=== PATIENT | female | born 1945 | race Caucasian/White ===

== ENCOUNTER 2017-04-06 06:16 | Day surgery (SDC) | payer OTHER, MEDICAID ==
[~2017-04-06] VITALS: Ht 157.5 cm; Wt 87.2 kg
[~2017-04-06 06:16] MED LIST: ALBU1AER INH; ALPR.25 PO; AMLO5TAB22 PO; DOCU1CAP39 PO; DRON400 PO; FURO1TAB93 PO; MORP1INJ45 PO; MORP30SU PO; NITR0.4S SL; PARO10TA PO; PLAV75TA PO; POTA-267 PO; PRAV40TA PO; RANI150T PO; Z.0.OXYGEN INH; [UNRECOGNIZED DRUG - CODE] TD
[2017-04-06] MEDS ORDERED: [UNRECOGNIZED DRUG - CODE] T-DERMAL (07:08)
[2017-04-06] MEDS ORDERED: [UNRECOGNIZED DRUG - CODE] PO (07:08)
[2017-04-06] MEDS ORDERED: PRAV40TA2 PO (07:08)
[2017-04-06] MEDS ORDERED: MULT400T PO (07:08)
[2017-04-06] MEDS ORDERED: APIX5TAB PO (07:08)
[2017-04-06] MEDS ORDERED: POTA-243 PO (07:08)
[2017-04-06] MEDS ORDERED: PARO10TA2 PO (07:08)
[2017-04-06] MEDS ORDERED: FURO40TA PO (07:08)
[2017-04-06] MEDS ORDERED: PROT40TA PO (07:08)
[2017-04-06] MEDS ORDERED: MORP15TA73 PO (07:08)
[2017-04-06] MEDS ORDERED: SYMB160A INH (07:08)
[2017-04-06] MEDS ORDERED: ALPR0.25 PO (07:08)
[2017-04-06 07:09] VITALS: BP 146/51; PULSE 68; RESP 18; TEMP 98.1; O2SAT 97
[2017-04-06 07:24] LABS: AUTOMATED NEUTROPHIL # 3.9 TH/MM3 (1.8-7.7); BASOPHIL # 0.1 TH/MM3 (0-0.2); BASOPHIL % 0.9 % (0.0-2.0); EOSINOPHIL # 0.6 TH/MM3 (0-0.4); EOSINOPHIL % 7.5 % (0.0-4.0); HEMATOCRIT 38.3 % (35.0-46.0); HEMO FLAGS DIFF FINAL; LYMPH % 29.8 % (9.0-44.0); LYMPHOCYTE # 2.2 TH/MM3 (1.0-4.8); MEAN CELL VOLUME 84.8 FL (80.0-100.0); MEAN CORPUSCULAR HEMOGLOBIN 28.4 PG (27.0-34.0); MEAN CORPUSCULAR HGB CONC 33.5 % (32.0-36.0); MONO % 9.4 % (0.0-8.0); NEUT % 52.4 % (16.0-70.0); PLATELET COUNT 202 TH/MM3 (150-450); RED BLOOD COUNT 4.52 MIL/MM3 (4.00-5.30); RED CELL DISTRIBUTION WIDTH 16.1 % (11.6-17.2); WHITE BLOOD COUNT 7.5 TH/MM3 (4.0-11.0)
[2017-04-06 07:31] LABS: APTT (PATIENT) 28.5 SEC (24.3-30.1); PROTHROMBIN TIME - PATIENT 10.6 SEC (9.8-11.6)
[2017-04-06] MEDS ORDERED: HEPARIN-NS/PF INJ 500 ML ONE (07:31)
[2017-04-06] MEDS ORDERED: MIDAZOLAM HCL 2 MG/2 ML VIAL ONE ×2 (07:32→07:55)
[2017-04-06 07:36] LABS: POTASSIUM 3.9 MEQ/L (3.5-5.1)
--- NOTE | 2017-04-06 08:31 | CATHPROC ---
[facility] HIS Report Study Information Study Number Admission Scheduled Start Study Start [id number] 04/06/2017 04/06/2017 Apr 06 2017 7:16AM Referring Institution Admit Source Facility Department 1 Other [facility] Physician and Clinical Staff Initial Wing Emerita Woods Stamping Press Operator Bryce RN, Alphonso Dillon RCIS(BS) Scrub Neela Spencer,RT(R) Procedures Performed Procedure Location (Site) Vessel Name Coronary Angiograms LCA Left Coronary Coronary Angiograms RCA Right Coronary L Heart Cath LV Gram-hand inj. LV LV Ventricle Equipment Time Sleeper Cutter Description Size Mfg Part Number Used/Scraped TRANSDUCER, TRUWAVE 07:19 [employer] [place] * [id number] Used W/Sentrinsic INTRODUCER SET, [id number]- 08:03 [place]loh. FR 5 Used MICROPUNCTURE, STIFFENED SC-NT-U-SST PIGTAIL ANG. 145 INFINITI CATHETER 07:19 [employer] INDUSTRIES PACK, CCL CUSTOM * [id number] Used 07:19 [employer] PACER PEN, SKIN DUAL W/ RULER * [id number] Used [id number]- 08:07 [employer] MEDICAL SHEATH, FR6.5 PRELUDE 11CM FR 6.5 038ACT Used *[id number] 07:19 [employer] MEDICAL WIRE, 3MMJ .035 180CM 180CM [id number] Used 07:19 NAMIC MANIFOLD, 4 PORT * [id number] Used 07:19 [employer]COMED OMNIPAQUE, 350 MG, 100ML 100ML [id number] Used 08:07 [employer] OMNIPAQUE, 350 MG, 150ML 150ML [id number] Used 07:19 VALERIO MEDICAL BLANKET,WARM AIR CCL * [id number] Used Equipment Model, Serial, Lot Number and Expiration Data Description Model Number Serial Number Lot Number Expiration Date INTRODUCER SET, [id number] 02-16-2020 MICROPUNCTURE, STIFFENED History: Current Medications Medication Dosage/Unit Route Frequency Last Date/Time Taken Statins (any) ELIQUIS LASIX K-Dur NTG Patch History: Allergies Allergy Reaction Adhesives RASH Amoxicillin Aspirin Codeine RASH TAKES LORTAB AT HOME Darvon UNKNOWN Imipramine UNKNOWN Local Anesthetics UNKNOWN Penicillin UNKNOWN Propoxyphene Sulfa UNKNOWN Tetracyclines UNKNOWN DARVOCET NAUSEA anesthetic History: Risk Factors Family History of Hypertension Dyslipidemia Previous DE Previous Heart Failure Premature CAD Yes Yes Yes Yes Yes Prior Valve Prior PCI Prior PCIDate Prior CABG Surgery No Yes 11/29/2013 No Cerebrovascular Peripheral Artery Chronic Lung On Dialysis Diabetes Diabetes Therapy Disease Disease Disease No No No Yes Yes Oral History: Stress Tests Stress or Imaging Studies Performed No History: Other Current Smoker Method Packs a Day Years Used Pack Years Yes Cigarettes 1 54 54 Labs Hgb (g/dl) Hct (%) WBC (l/cumm) Platelets (thousands) 12.00-18.00 37.00-55.00 4.80-10.80 140.00-450.00 12.8 38.2 7.5 202 Glucose (mg/dl) BUN (mg/dl) Creatinine (mg/dl) BUN:Creatinine (1:x) 60.00-110.00 8.00-20.00 0.10-9.00 10.00-20.00 90 20 0.8 25 Na (meq/l) K (meq/l) 138.00-146.00 3.80-5.10 143 3.9 INR (PTT:PT) 0.50-2.00 1 Medication Medication Total Dose (Bolus/Oral) Medication Total Dosage/Unit FENTANYL 100 mcg VERSED 4 mg Medications (Bolus/Oral) Medication Time Given Dosage/Unit Administered By Reason VERSED 04/06/2017 7:51:00 AM 2 mg Venkatesh Wu RN 2 mg VERSED given in lab by Venkatesh Wu RN in Right Forearm via Peripheral IV. Ordered by Wing Emerita Subramanian. FENTANYL 04/06/2017 7:52:48 AM 50 mcg Venkatesh Wu RN 50 mcg FENTANYL given in lab by Venkatesh Wu RN in Right Forearm via Peripheral IV. Ordered by Ezio Subramanian. VERSED 04/06/2017 8:01:36 AM 1 mg Bryce FIGUEROA, Venkatesh 1 mg VERSED given in lab by Venktaesh Wu RN in Right Forearm via Peripheral IV. Ordered by Wing Emerita Subramanian. FENTANYL 04/06/2017 8:02:46 AM 25 mcg Venkatesh Wu RN 25 mcg FENTANYL given in lab by Venkatesh Wu RN in Right Forearm via Peripheral IV. Ordered by Ezio Subramanian. FENTANYL 04/06/2017 8:05:10 AM 25 mcg Bryce FIGUEROA, Venkatesh 25 mcg FENTANYL given in lab by Venkatesh Wu RN in Right Forearm via Peripheral IV. Ordered by Ezio Subramanian. VERSED 04/06/2017 8:06:00 AM 1 mg Venkatesh Wu RN 1 mg VERSED given in lab by Venkatesh Wu RN in Right Forearm via Peripheral IV. Ordered by Wing Emerita Subramanian. Medication (Drip) Medication Time Given Dosage/Unit Concentration/Unit Diluent (ml) Solution IV Solutions 04/06/2017 7:23:57 AM 0 mL (IV) 500 NaCl .9 Patient arrived on IV Solutions given by Venkatesh Wu RN in Right Forearm via Peripheral IV. Pump/Dri p Flow = 20 ml/hr using NaCl .9. Initial Case Assessment Cardiovascular HR Rhythm NIBP Chest Pain 63 SR 122/56 0 Edema Present Skin color Skin None Normal Warm Dry Circulatory - Right Pulses Dorsalis Pedis Femoral d 3 Scale (0,1,2,3,4,d) Circulatory - Left Pulses Dorsalis Pedis Femoral 2 3 Scale (0,1,2,3,4,d) Circulatory - Lower Extremities Color Lower Right Color Lower Left Normal Normal Neurological State Oriented to time-place- Alert Moves all extremities person Respiration - General Respiration Rate SpO2 (%) O2 (lpm) (B/min) 10 100 2 Final Case Assessment Cardiovascular HR Rhythm NIBP Chest Pain 63 SR 122/56 0 Edema Present Skin color Skin None Normal Warm Dry Circulatory - Right Pulses Dorsalis Pedis Femoral d 3 Scale (0,1,2,3,4,d) Circulatory - Left Pulses Dorsalis Pedis Femoral 2 3 Scale (0,1,2,3,4,d) Circulatory - Lower Extremities Color Lower Right Color Lower Left Normal Normal Neurological State Oriented to time-place- Alert Moves all extremities person Respiration - General Respiration Rate SpO2 (%) O2 (lpm) (B/min) 10 100 2 Chronological Log Time Study Chronological Log 7:23:36 Patient arrived via Bed. 7:23:37 Patient Name, D.O.B, / Armband Verified By R.N. 7:23:38 Consent signed by the physician and the patient and verified by the [facility] staff. 7:23:38 Pre-op and post- op instructions given; patient acknowledges understanding of instructions. 7:23:46 Presedation assessment performed by [facility] RN. 7:23:49 Patient has been NPO for Less than 6Hrs. 7:23:50 Skin Breakdown-NONE 7:23:52 Patient Warmer Placed on the Table. 7:23:56 A # 20 IV was noted in the Forearm (right). Grade = PATENT Patient arrived on IV Solutions given by Venkatesh Wu RN in Right Forearm via Peripheral IV. Pu mp/Drip Flow = 20 ml/hr 7:23:57 using NaCl .9. 7:23:58 History and physical on the chart or being dictated. Assessment: Initial Case, HR=63 BPM, Rhythm=SR, FNDS=392/56 mmhg, Chest Pain=0, Edema=None, Alton r=Normal, Skin = Warm, Dry Right Pulses: Dani Ped=d, Femoral=3 Left Pulses: Dani Ped=2, Femoral=3 7:23:59 Lower Right Extremities: Color=Normal Lower Left Extremities: Color=Normal Neurological: State=Alert, Ox3, JONES Respiration: Resp=10 B/min, ZlP0=310 %, O2=2 lpm Vitals capture started with the following parameters, Patient=Adult, Interval=15 min, Initial Pr ckabtb=432 mmHg, 7:31:26 Deflation Rate=5 mmHg 7:32:13 HR=62 bpm, UMBC=052/56 mmhg, MyV0=843.0 %, Resp=10 B/min, Pain=0, Hugo=10, Hernandes=2 7:37:51 HR=65 bpm, MQGM=720/48 mmhg, IcM2=701.0 %, Resp=10 B/min, Pain=0, Hugo=10, Hernandes=2 7:42:09 HR=64 bpm, FJKL=637/48 mmhg, JxO4=925.0 %, Resp=17 B/min 7:44:39 Bilateral groins prepped with 2% chlorhexidine, and draped after a 3 min. waiting time. 7:45:12 Pressure channel 1 zeroed. 7:47:51 HR=69 bpm, WIUL=862/49 mmhg, RsM6=853.0 %, Resp=13 B/min 7:50:07 MD arrived. Time Out. Correct patient, correct procedure,correct physician, ,power injector not loaded with contrast with surgical 7:50:47 team present. Time Out Concurred by MD, individual staff in procedure 7:51:00 2 mg VERSED given in lab by Venkatesh Wu RN in Right Forearm via Peripheral IV. Ordered by Wing Emerita Loja. 7:52:05 HR=66 bpm, ZVDQ=004/57 mmhg, HwQ1=548.0 %, Resp=14 B/min 7:52:13 Case Start 7:52:48 50 mcg FENTANYL given in lab by Venkatesh Wu RN in Right Forearm via Peripheral IV. Ordered by Wing Luis Enrique Subramanian 7:54:55 Reference ECG taken 7:57:08 HR=61 bpm, EMRY=088/44 mmhg, SpO2=99.0 %, Resp=17 B/min, Pain=0, Hugo=10, Hernandes=2 8:01:36 1 mg VERSED given in lab by Venkatesh Wu RN in Right Forearm via Peripheral IV. Ordered by Wing Luis Enrique Loja 8:02:03 HR=60 bpm, GHGT=700/47 mmhg, JnG8=484.0 %, Resp=16 B/min, Pain=0, Hugo=10, Hernandes=2 8:02:46 25 mcg FENTANYL given in lab by Venkatesh Wu RN in Right Forearm via Peripheral IV. Ordered by Wing Luis Enrique Subramanian 8:04:31 Access site was Right Femoral Artery. A INTRODUCER SET, MICROPUNCTURE, STIFFENED FR 5 was advanced into the Fem Art (right) using the 8:04:37 Percutaneous technique. A SHEATH, FR6.5 PRELUDE 11CM FR 6.5 was exchanged in the Fem Art (right). This was necessary in order to 8:04:43 accomodate a larger catheter. 8:05:10 25 mcg FENTANYL given in lab by Venkatesh Wu RN in Right Forearm via Peripheral IV. Ordered by Wing Luis Enriqeu Subramanian 8:06:00 1 mg VERSED given in lab by Venkatesh Wu RN in Right Forearm via Peripheral IV. Ordered by Wing Emerita Loja. Recorded Pressure: Ao, HR=65, Condition=Condition 1 8:06:42 (Aorta) Ao 118/47/76 A JL 4.0 INFINITI CATHETER FR 6 was advanced over a wire. OMNIPAQUE, 350 MG, 100ML 100ML was use d for 8:06:53 injections. 8:06:59 The LCA was injected and visualized at various angles. OMNIPAQUE, 350 MG, 150ML 150ML used. 8:07:04 HR=66 bpm, ITQM=460/51 mmhg, SpO2=99.0 %, Resp=43 B/min, Pain=0, Hugo=10, Hernandes=2 Recorded Pressure: Ao, HR=82, Condition=Condition 1 8:07:45 (Aorta) Ao 98/50/72 After removing the current catheter a 3DRC INFINITI CATHETER FR 6 was advanced over a WIRE, 3MMJ .035 180CM 8:08:49 180CM. 8:09:15 The RCA was injected and visualized at various angles. OMNIPAQUE, 350 MG, 150ML 150ML used. After removing the current catheter a PIGTAIL ANG. 145 INFINITI CATHETER FR 6 was advanced over a WIRE, 3MMJ 8:11:37 .035 180CM 180CM. 8:12:05 HR=70 bpm, RDWA=390/47 mmhg, SpO2=98.0 %, Resp=16 B/min, Pain=0, Hugo=10, Hernandes=2 8:13:11 The LV was manually injected with 6 cc's and visualized. OMNIPAQUE, 350 MG, 150ML 150ML us ed. Recorded Pressure: LV, HR=70, Condition=Condition 1 8:13:23 (Left Ventricle) LV 116/-2/7 Recorded Pressure: LV, Ao, HR=70, Condition=Condition 1 8:13:55 (Left Ventricle) LV 111/0/5, (Aorta) Ao 103/37/67 Recorded Pressure: Ao, HR=68, Condition=Condition 1 8:14:34 (Aorta) Ao 107/43/70 8:14:40 Catheter was removed 8:15:41 Case End Assessment: Final Case, HR=63 BPM, Rhythm=SR, XOJN=357/56 mmhg, Chest Pain=0, Edema=None, Alton r=Normal, Skin = Warm, Dry Right Pulses: Dani Ped=d, Femoral=3 Left Pulses: Dani Ped=2, Femoral=3 8:16:11 Lower Right Extremities: Color=Normal Lower Left Extremities: Color=Normal Neurological: State=Alert, Ox3, JONES Respiration: Resp=10 B/min, KuS0=933 %, O2=2 lpm 8:16:48 Sterile dressing applied to site 8:17:06 HR=70 bpm, AXKJ=854/46 mmhg, SpO2=97.0 %, Resp=21 B/min 8:17:13 No case complications noted. 8:17:15 Cine recording checked. 8:17:22 Bedside Report will be given. 8:17:41 Contrast Scanned 8:17:43 A Left Heart Cath was performed. 8:17:49 Patient moved to stretcher End Study - Contrast Media Used In Study Contrast Total Opened (mL) Total Used (mL) Total Wasted (mL) Omnipaque 150 150 0 End Study - Maximum Contrast Load Max Contrast Load (mL) 378.7 End Study - Radiation Exposure Fluoro Time (minutes) 2.5 End Study - Patient Disposition Complications Transferred To Telemetry Bed
[2017-04-06] MEDS ORDERED: SODIUM CHLOR 0.9% 1000 ML INJ 1,000 ML IV SCH (08:34)
[2017-04-06] MEDS ORDERED: MISC INFORMATION XX ONE (08:45)
--- NOTE | 2017-04-06 10:58 | MA ---
cc: BRITNI GUALLPA MD DATE 04/06/2017 CLINICAL INFORMATION The patient is a 71-year-old woman, with a new diagnosis of CHF, EF of 40-45% by recent echocardiogram. The patient known to have coronary artery disease with multiple LAD stenting, concern of possible ischemic origin of the new onset congestive heart failure. The patient is here for coronary angiogram and intervention if indicated procedures. PROCEDURES 1. Left heart catheterization. 2. Left ventriculogram. 3. Coronary angiogram. PROCEDURE DETAILS AND FINDINGS The procedure, indications, risks and benefits were all explained to the patient, all her questions answered and informed consent obtained. The patient reports ALLERGY TO ALL LIDOCAINE, therefore no local anesthesia was applied. A micropuncture needle was entered into the right common femoral artery and exchanged to a 6-Greek, 10-cm sheath with modified Seldinger technique. Then a 6-Greek JL4 catheter was engaged in the left main coronary, angiograms were taken in different projections. A 6-Greek JR4 catheter was engaged in the RCA ostium and angiograms were taken. A 6-Greek pigtail catheter was advanced into the left ventricle; the left ventriculogram was taken in the MILAN projection. The left ventricular pressure was measured. The catheter pulled into the aorta. FINDINGS 1. The left ventricle was normal in size and systolic function with estimated EF of 60-65%. No pressure gradient across the aorta. 2. Left main coronary - Patent with no angiographic disease. 3. Large, long LAD. Multiple stenting from the proximal to mid with no angiographic evidence of in-stent restenosis. 4. Medium-sized circumflex with no angiographic occlusive disease. 5. Dominant RCA, with no angiographic occlusive disease. CONCLUSIONS 1. Patent LAD stenting. 2. No occlusive coronary disease noted. 3. LVEF has returned to normal by LV-gram. 4. Continue medical management. Wing Emerita Guallpa MD YWL/YIFAN /8:44 AM /10:41 AM
[2017-04-06] MEDS ORDERED: IOHEXOL 350 MG/ML 50 ML BTL (for Cath Lab) OTHER ONE (13:58)
--- NOTE | 2017-04-06 15:39 | EKG ---
Date Performed: 04/06/2017 Time Performed: 07:01:46 PTAGE: 71 years EKG: Sinus rhythm Poor R wave progression - probable normal variant Anterior T wave changes are nonspecific Compared t o prior tracing no significant change Borderline ECG PREVIOUS TRACING : 09/17/2015 17.19 DOCTOR: Skyler Nguyen Interpretating Date/Time 04/06/2017 15:36:33
== END 2017-04-06 15:15 | disposition home or self-care (01) ==
LOC: HDOC 06:16 → HDIC 06:17 → HDOC 15:15
PROVIDERS: ATTEND Internal Medicine Cardiovascular Disease
DX: I25.10 Atherosclerotic heart disease of native coronary artery without angina pectoris (principal); I50.22 Chronic systolic (congestive) heart failure; I51.9 Heart disease, unspecified; J44.9 Chronic obstructive pulmonary disease, unspecified; I48.0 Paroxysmal atrial fibrillation; I95.9 Hypotension, unspecified; E11.9 Type 2 diabetes mellitus without complications
CPT/HCPCS: 80048; 85025; 85610; 85730; 93005; 93458; C1769; C1893; J1644; J2250; J3010; Q9967

== ENCOUNTER → 2018-01-05 | Outpatient (CLI) | payer OTHER, MEDICAID ==
[~2018-01-05] MED LIST changes: -ALBU1AER INH; -ALPR.25 PO; +ALPR0.25 PO; -AMLO5TAB22 PO; +APIX5TAB PO; -DOCU1CAP39 PO; -DRON400 PO; -FURO1TAB93 PO; +FURO40TA PO; +KLOR10TA PO; +MORP15TA73 PO; -MORP1INJ45 PO; -MORP30SU PO; +MULT400T PO; -NITR0.4S SL; -PARO10TA PO; +PARO10TA2 PO; -PLAV75TA PO; -POTA-267 PO; -PRAV40TA PO; +PRAV40TA2 PO; +PROT40TA PO; -RANI150T PO; +SYMB160A INH; -Z.0.OXYGEN INH; +[UNRECOGNIZED DRUG - CODE] PO; +[UNRECOGNIZED DRUG - CODE] T-DERMAL; -[UNRECOGNIZED DRUG - CODE] TD
--- NOTE | 2018-01-07 10:09 | RSPPFT ---
DATE OF PROCEDURE: 01/05/18 COMMENTS: VOLUMES DYNAMIC: FVC and FEV1 moderately reduced. STATIC: FRC, RV mildly increased; TLC normal. FLOWS: FEV1% normal; FEF 25-75 moderately reduced. DIFFUSION: Moderately reduced. FLOW VOLUME LOOP: Pattern of variable intrathoracic airways obstruction. IMPRESSION: Moderately severe obstructive ventilatory defect with reduction in diffusion consistent with emphysema. Airways resistance is increased. There is mild hyperinflation. There is improvement post-bronchodilator.
== END ==
LOC: HRSP 12:18
PROVIDERS: ATTEND Internal Medicine
DX: J44.9 Chronic obstructive pulmonary disease, unspecified (principal)
CPT/HCPCS: 94060; 94618; 94726; 94729